=== PATIENT | female | born 1965 | race Two or more races ===

== ENCOUNTER 2021-11-28 15:18 | Emergency (ER) | payer OTHER, MEDICAID ==
[~2021-11-28] VITALS: Ht 170.2 cm; Wt 68.0 kg
[2021-11-28] MEDS ORDERED: cloNIDine HCL 0.1 MG TAB PO ONE (15:30)
[2021-11-28 18:00] VITALS: BP 179/97
== END 2021-11-28 18:29 | disposition home or self-care (01) ==
LOC: ER 15:18 → EDBD 15:18 → ER 18:29
DX: I16.0 Hypertensive urgency (principal); I11.0 Hypertensive heart disease with heart failure; I50.9 Heart failure, unspecified; J44.9 Chronic obstructive pulmonary disease, unspecified
CPT/HCPCS: 93005